=== PATIENT | female | born 1955 | race African-American/Black ===

== ENCOUNTER 2022-02-01 17:22 | Emergency (ER) | payer OTHER ==
[~2022-02-01] VITALS: Ht 162.6 cm; Wt 90.0 kg
[2022-02-01 19:45] LABS: BASOPHILS % 0.1 % (0.0-2.0); EOSINOPHILS % 0.4 % (0.0-5.0); HEMATOCRIT. 37.8 % (36.0-48.0); HEMOGLOBIN. 12.5 g/dL (12.0-16.0); LYMPHOCYTES % 14.1 % (20.0-50.0); MEAN CORPUSCULAR HEMOGLOBIN 27.7 pg (28.0-32.0); MEAN CORPUSCULAR VOLUME 83.7 fL (81.0-99.0); MEAN PLATELET VOLUME 8.5 fl (7.4-10.4); MONOCYTES % 3.6 % (2.0-8.0); NEUTROPHILS % 81.8 % (40.0-76.0); PLATELET 171 x1000/uL (130-400); RED BLOOD CELL COUNT 4.52 mill/uL (4.2-5.4); RED CELL DISTRIBUTION WIDTH 14.3 % (11.6-14.6)
[2022-02-01 19:51] LABS: CHLORIDE 110 mEq/L (98-107)
[2022-02-01 19:55] LABS: ETHANOL BLOOD < 10 mg/dL
[2022-02-01] MEDS ORDERED: AZITHROMYCIN 500MG/250ML 250 ML IV ONE (21:45)
[2022-02-01] MEDS ORDERED: SODIUM CHLORIDE 0.9% 250 ML IV ONE (21:45)
[2022-02-01] MEDS ORDERED: CEFTRIAXONE 1 G PREMIX 50 ML IV ONE (21:45)
[2022-02-01] MEDS: CEFTRIAXONE 1 G PREMIX 50 ML IV NR ×2 (22:50→23:20)
[2022-02-02 03:30] VITALS: BP 145/74
== END 2022-02-02 03:30 | disposition short-term general hospital (02) ==
LOC: ER 17:22
DX: R55 Syncope and collapse (principal); E11.9 Type 2 diabetes mellitus without complications; Z20.822 Contact with and (suspected) exposure to COVID-19; I25.2 Old myocardial infarction
CPT/HCPCS: 36415; 70450; 71045; 80053; 80320; 83605; 83690; 83880; 84484; 85025; 87426; 93005; 96365; 96368; 99285; C9803; J0456; J0696; J7050; U0005; 96367; G0480